=== PATIENT | female | born 1990 | race Caucasian/White ===

== ENCOUNTER → 2019-04-15 11:57 | Outpatient (CLI) | payer SELFPAY ==
--- NOTE | 2019-04-15 12:10 | RAD_ITS ---
STUDY: HYSTEROSALPINGOGRAM. REASON FOR EXAM: Female, 28 years old. Infertility. FLUOROSCOPY TIME (if supplied): (0:20) minutes/seconds. 3 spot images were obtained. TECHNIQUE: A hysterosalpingogram was performed by the [employer] manager. 3 spot images were submitted. COMPARISON: None. FINDINGS: The uterus is unremarkable. The fallopian tubes are widely patent bilaterally with bilateral spill. RAD/Salpingogram IMPRESSION: Unremarkable hysterosalpingogram. Electronically Signed: Petr Horne, at 13:38 EDT , Service support ,
== END ==
PROVIDERS: Family Provider Family Medicine; PCP Family Medicine; Referring Provider Obstetrics & Gynecology; Visit Provider Obstetrics & Gynecology
DX: N97.9 Female infertility, unspecified (principal)
CPT/HCPCS: 58340; 74740; Q9967

== ENCOUNTER 2021-11-12 08:47 | Outpatient (CLI) | payer SELFPAY ==
[2021-11-12 11:15] LABS: Glucose 75GTT - 60 minutes 61 mg/dL (100-160)
[2021-11-12 11:18] LABS: Glucose 75GTT - 30 minutes 91 mg/dL (100-160)
[2021-11-12 11:26] LABS: Insulin 75GTT - Fasting 8.2 mU/L (2.6-37.6)
[2021-11-12 11:27] LABS: Insulin 75GTT - 60 min 63.7 mU/L (Not Estab)
[2021-11-12 11:28] LABS: Glucose 75GTT - Fasting 84 mg/dL (70-99)
[2021-11-12 11:32] LABS: Cholesterol 134 mg/dL (200); Estradiol 57.4 pg/mL; Free T3 3.1 pg/mL (2.18-3.98); High Density Lipoprotein 37 mg/dL; T4 Free Direct 1.17 ng/dL (0.76-1.46); Thyroid Stim Hormone (TSH) 2.51 uIU/mL (0.358-3.74); Triglycerides 73 mg/dL; Very Low Density Lipoprotein 15 mg/dL (5-40)
[2021-11-12 13:04] LABS: Vitamin D,25 Hydroxy 28.8 ng/mL
[2021-11-12 13:45] LABS: Glucose 75GTT - 120 minutes 61 mg/dL (70-140)
[2021-11-12 13:52] LABS: Insulin 75GTT - 120 min 21.2 mU/L (Not Estab.)
[2021-11-18 18:08] LABS: DHEA Sulfate 87.8 ug/dL (84.8-378.0)
[2021-11-19 12:57] LABS: Sex Hormone-binding Globulin 53.3 nmol/L (24.6-122.0); T3 Reverse 16.9 ng/dL (9.2-24.1)
== END 2021-11-12 23:59 | disposition home or self-care (01) ==
LOC: WOBLAB 08:49
PROVIDERS: PCP Family Medicine; Visit Provider Obstetrics & Gynecology
DX: E55.9 Vitamin D deficiency, unspecified (principal); E22.2 Syndrome of inappropriate secretion of antidiuretic hormone; E03.9 Hypothyroidism, unspecified
CPT/HCPCS: 36415; 80061; 82306; 82533; 82627; 82670; 82951; 82952; 83525; 84270; 84439; 84443; 84480; 84481; 84482; 82626

== ENCOUNTER 2021-11-30 13:03 | Outpatient (CLI) | payer SELFPAY ==
[2021-11-30 13:52] LABS: Estradiol 44.3 pg/mL
[2021-11-30 14:16] LABS: Progesterone Level 3.32 ng/mL (See Comment)
[2021-12-06 13:27] LABS: Anti-Mullerian Hormone,Serum 2.34 ng/mL (.)
== END 2021-11-30 23:59 | disposition home or self-care (01) ==
PROVIDERS: PCP Family Medicine; Visit Provider Obstetrics & Gynecology
DX: E28.9 Ovarian dysfunction, unspecified (principal); N83.202 Unspecified ovarian cyst, left side
CPT/HCPCS: 36415; 82670; 83516; 84144

== ENCOUNTER → 2023-03-27 | Outpatient (CLI) | payer SELFPAY ==
[2023-03-27 17:13] LABS: Absolute Lymphocyte Count 1.85 X10^3/uL (0.83-4.51); Absolute Neutrophil Count 3.7 X10^3/uL (2.0-7.7); Basophil# 0.04 X10^3/uL; Basophil% 0.6 % (0-1); Eosinophil# 0.15 X10^3/uL; Eosinophils% 2.4 % (0-5); Hematocrit 42.7 % (37-47); Hemoglobin 14.2 g/dL (12.0-15.0); Lymphocyte # 1.85 X10^3/ul (0.83-4.51); Lymphocyte % 29.5 % (19-41); Mean Corp Hgb Conc 33.3 g/dL (32-36); Mean Corpuscular Hgb 29.3 pg (27.0-32.0); Mean Corpuscular Volume 88.2 fL (81-99); Mean Platelet Vol. 11.4 fl (6.2-12.0); Monocyte# 0.53 X10^3/uL; Monocyte% 8.4 % (0-10); NRBC Flagged by Analyzer 0 % (0-5); Neutrophil # 3.69 X10^3/uL (2.7-7.7); Neutrophil % 58.8 % (47-70); Platelet Count 183 K/mm3 (150-450); RBC Distribution Width SD 38.6 fl (35.1-43.9); Red Blood Count 4.84 M/mm3 (4.2-5.4); White Blood Count 6.3 K/mm3 (4.4-11.0)
[2023-03-27 17:41] LABS: Hemoglobin A1c 5.2 % (3.8-5.6)
[2023-03-27 19:10] LABS: Estradiol 64.7 pg/mL; Follicle Stimulating Hormone 5.1 mIU/mL; Luteinizing Hormone 2.5 mIU/mL; Prolactin 22.8 ng/mL; T4 Free Direct 0.92 ng/dL (0.76-1.46); Thyroid Stim Hormone (TSH) 2.35 uIU/mL (0.358-3.74)
[2023-03-28 13:29] LABS: hCG Titer Quant., Serum < 1 mIU/mL (1-3)
== END | disposition home or self-care (01) ==
LOC: WOBLAB 15:01
PROVIDERS: PCP Family Medicine; Visit Provider Nurse Practitioner Women's Health
DX: N93.9 Abnormal uterine and vaginal bleeding, unspecified (principal)
CPT/HCPCS: 36415; 82670; 83001; 83002; 83036; 84146; 84439; 84443; 84702; 85025